=== PATIENT | male | born 1970 | race Two or more races ===

== ENCOUNTER 2018-09-13 14:42 | Emergency (ER) | payer MEDICARE, OTHER ==
[~2018-09-13] VITALS: Ht 177.8 cm; Wt 95.3 kg
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
--- NOTE | 2018-09-13 15:05 | NUR ---
URINE COLLECTED AND SENT TO LAB
[2018-09-13 17:12] VITALS: BP 120/65
--- NOTE | 2018-09-13 17:53 | NUR ---
Called [facility] Monie Mills was given an hour eta
[2018-09-13] MEDS ORDERED: LORAZEPAM 1 MG TABLET ONE (19:28)
[2018-09-13] MEDS ORDERED: LORAZEPAM 1 MG TABLET PO ONE (19:30)
--- NOTE | 2018-09-13 20:12 | NUR ---
Patient discharged to home in stable condition. Written and verbal after care instructions given. Patient verbalizes understanding of instruction.
== END 2018-09-13 20:13 | disposition home or self-care (01) ==
LOC: ER 14:43
DX: F28 Other psychotic disorder not due to a substance or known physiological condition (principal); R45.6 Violent behavior; F79 Unspecified intellectual disabilities; I10 Essential (primary) hypertension